=== PATIENT | female | born 1975 | race Caucasian/White ===

== ENCOUNTER 2016-09-17 15:51 | Emergency (ER) | payer OTHER ==
[~2016-09-17] VITALS: Ht 157.5 cm; Wt 104.5 kg
[~2016-09-17 15:51] MED LIST: IBUP-1827 PO
[2016-09-17 15:54] VITALS: BP 140/83; PULSE 114; RESP 16; O2SAT 100
--- NOTE | 2016-09-17 16:07 | ED.REPORT ---
HPI-Chest Pain 40 and Over Date of Service Sep 17, 2016 ED Provider: Dr. Josr Thornton The patient is a 41 year old female who presents to the ED due to dull, intermittent left chest pain onset this morning. Patient reports that it has been, "pounding fast all day." Associated symptoms include one episode of vomiting this morning, nausea, and bloody nose. No family hx of heart disease. Nursing Notes Stated Complaint: CHEST PAIN Chief Complaint: Chest Pain Nursing Notes Reviewed: Yes Allergies: Coded Allergies: No Known Allergies (Unverified , 09/17/16) Scheduled Omeprazole (Omeprazole) 20 Mg Tablet. 20 MG PO BID General Time Seen by MD: 16:07 Chief Complaint Chest pain Hx Obtained From: Patient Arrived By: Walk-in Sudden in Onset?: Yes Onset Occurred: 5 - 8 hours ago Symptom Duration: Since onset Location: : Chest left Quality: Dull, Painful Radiation: : Does not radiate Severity: Current: Mild Recent Healthcare: No recent doctor visit, No recent hospitalization Similar Sx Previous: No Past Medical History Past Medical History Ovarian cyst. 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 Family History Mother had HTN, ovarian cysts. Smoking History Former Smoker Social History Other Social History: Local resident Ambulatory Status Independent Review of Systems Cardiovascular: Reports: Chest pain GI: Reports: Nausea, Vomiting Complete sys rev & neg: except as marked. Ears / Nose / Throat: Reports: Nose bleeding Physical Exam Initial Vital Signs Vital Signs (First) Date Time Temp Pulse Resp B/P Pulse Ox O2 Delivery O2 Flow Rate FiO2 09/17/16 15:54 36.4 114 16 140/83 100 Room Air Initial VS: Reviewed Head / Eyes: Atraumatic, Normocephalic, PERRL ENT: Mucous membranes moist, Conjunctiva normal, No scleral icterus Neck: Supple, Non-tender, Full range of motion Back: No CVA tenderness Skin: Warm, Dry, No cyanosis Neurologic: Alert, Oriented, Nonfocal Psychiatric: Mood/affect normal, Behavior normal, Normal thought content General/Constitutional: Awake, Alert, No acute distress, Cooperative, Not toxic appearing Respiratory / Chest: Atraumatic, Breath sounds NL, No respiratory distress, No rales, No rhonchi, No wheezing no pleuritic guarding Cardiovascular: Heart rate NL, Regular rhythm, Heart sounds NL, No gallop, No murmurs, No rubs Abdomen: Atraumatic, Soft, Non-tender, No guarding, No rebound, BS normoactive Lower Extremity / Pelvis / MS: Atraumatic, Inspection NL, No edema Interpretation & Diagnostics Lab Results Interpretation Result Diagram: 09/17/16 1600 09/17/16 1600 Test 09/17/16 16:00 09/17/16 18:18 White Blood Count 9.3th/mm3 (3.8-10.1) Red Blood Count 4.24mil/mm3 (3.90-5.20) Hemoglobin 12.4g/dL (12.0-15.6) Hematocrit 38.4% (35.0-46.0) Mean Corpuscular Volume 90.6fL (81-100) Mean Corpuscular Hemoglobin 29.2pg (27.0-35.0) Mean Corpuscular Hemoglobin Concent 32.3% (32.0-37.0) Red Cell Distribution Width 12.9% (12.3-15.4) Platelet Count 317bil/L (150-400) Neutrophils (%) (Auto) 64.9% (40-74) Lymphocytes (%) (Auto) 28.7% (14-46) Monocytes (%) (Auto) 4.9% (4-12) Eosinophils (%) (Auto) 1.2% (0-5) Basophils (%) (Auto) 0.2% (0-3) Erythrocyte Sedimentation Rate 9mm/hr (0-32) Sodium Level 139mEq/L (134-144) Potassium Level 3.8mEq/L (3.5-5.2) Chloride Level 102mEq/L (97-108) Carbon Dioxide Level 21mmol/L (18-29) Blood Urea Nitrogen 16mg/dL (6-24) Creatinine 0.61mg/dL (0.57-1.00) Estimat Glomerular Filtration Rate 154mL/min (>59) Glucose Level 103mg/dL (60-99) Calcium Level 9.0mg/dL (8.5-10.1) Magnesium Level 2.0mg/dL (1.6-2.6) Total Bilirubin 0.4mg/dL (0.0-1.2) Aspartate Amino Transf (AST/SGOT) 15U/L (0-50) Alanine Aminotransferase (ALT/SGPT) 14U/L (0-32) Alkaline Phosphatase 59U/L (25-150) Total Protein 7.0g/dL (6.4-8.4) Albumin 4.3g/dL (3.4-5.0) Thyroid Stimulating Hormone (TSH) 0.838uIU/mL (0.450-4.500) Free Thyroxine 1.25ng/dL (0.82-1.77) Troponin T < 0.010ug/L (0.0-0.011) ECG Interpretation Time: 15:06 Interpreted by: ED physician Normal ECG Interpretation: Normal rate (73), Normal sinus rhythm, No acute ischemic changes, Normal QRS, Normal axis, Normal intervals, No change from prior ECGs, Adequate tracing Rhythm / Conduction: Tachycardia (101) X-Ray Chest Interpretation Chest Xray Interpretation: IMPRESSION: No acute cardiopulmonary findings. Dictated by: Kasie Bland M.D. on 09/17/2016 at 16:34 Approved by: Kasie Bland M.D. on 09/17/2016 at 16:34 View: Portable Interpretation / Wet Read by: Interpret - Radiologist Re-Eval/Medical Decision Med Decision/Clinical Course 47-year-old female with no cardiac risk factors and no history presents with palpitations, present on my evaluation but not present by EKG. She also has had an intermittent chest pain that appears not to be cardiac after evaluation. EKG is stable and negative 2, and troponin is negative 2. She has no risk factors for DVT or pulmonary embolus and is cleared by PERC score This would appear to be esophageal spasm in all likelihood. No pleuritic character and no pulmonic character to it. She is discharged home for follow-up with PCP and stress testing in the relatively near future. Omeprazole twice a day. Time of Eval: 18:07 Patient Status: Condition improved, Pain improved Re-Evaluation/Progress Note: Pt rechecked. No signs of pneumonia or heart issues. Counseled Regarding: Diagnosis, Lab results, Need for follow-up, When/why to return to ED Discharge & Departure Primary Impression: Non-cardiac chest pain Additional Impression: Esophageal spasm Disposition: Home Discharge Condition All VS Reviewed: Yes Condition: Stable Additional Instructions: There is no evidence for cardiac disease causing your pain today. The completion of this evaluation requires a stress test. I can be arranged by her family doctor in the next week or two. If you need a local physician, the residency clinic and see you in follow-up. Begin omeprazole twice daily for a week then daily for months. Follow-up with local physician. Return if pain is worsening or new symptoms develop, particularly shortness of breath or other new symptoms of concern. Referrals: [facility] Scribe Attestation Portion of this note were transcribed by Adriana Edouard. I, Dr. Thornton, personally performed the history, physical exam, and medical decision-making: I reviewed and confirmed the accuracy for the information in the transcribed note. Signed by: humberto Mckeon, 09/17/16 1700 copies to: [facility] Josr Thornton MD Sep 17, 2016 16:07 Adriana Edouard Sep 17, 2016 16:15
[2016-09-17 16:34] LABS: BASOPHILS % (AUTO) 0.2 % (0-3); EOSINOPHILS % (AUTO) 1.2 % (0-5); MONOCYTES % (AUTO) 4.9 % (4-12); Mean Corpuscular Hemoglobin 29.2 pg (27.0-35.0); Mean Corpuscular Volume 90.6 fL (81-100); NEUTROPHILS % (AUTO) 64.9 % (40-74); Platelet Count 317 bil/L (150-400)
--- NOTE | 2016-09-17 16:36 | DRSVH ---
PROCEDURE: X-RAY CHEST ONE VIEW, PORTABLE ([id number]) INDICATIONS: chest pain TECHNIQUE: One view of the chest was acquired. COMPARISON: None. FINDINGS: Surgical changes and devices: None. Lungs and pleura: No pleural effusions or pneumothorax. Lungs are clear. Mediastinum: Mediastinal contours appear normal. Heart size is normal. Bones and chest wall: No suspicious bony lesions. Overlying soft tissues appear unremarkable. IMPRESSION: No acute cardiopulmonary findings. Dictated by: Kasie Bland M.D. on 09/17/2016 at 16:34 Approved by: Kasie Bland M.D. on 09/17/2016 at 16:34
[2016-09-17] MEDS ORDERED: Pantoprazole 4 mg/mL 10 mL Inj IVPUSH ONE (16:40)
[2016-09-17 17:04] LABS: TROPONIN T < 0.010 ug/L (0.0-0.011)
[2016-09-17] MEDS ORDERED: OMEP20TA86 PO (19:09)
[2016-09-17 19:32] VITALS: BP 130/84; PULSE 79; RESP 21; O2SAT 100
== END 2016-09-17 19:29 | disposition home or self-care (01) ==
LOC: SED 15:51
DX: R07.89 Other chest pain (principal); K22.4 Dyskinesia of esophagus; R11.2 Nausea with vomiting, unspecified; Z87.891 Personal history of nicotine dependence